=== PATIENT | male | born 1960 | race Caucasian/White ===

== ENCOUNTER 2018-03-12 07:45 | Observation (INO) | payer OTHER ==
[~2018-03-12] VITALS: Ht 172.7 cm; Wt 81.0 kg
[~2018-03-12 07:45] MED LIST: FEXO1TAB25 PO
[2018-03-12] MEDS ORDERED: MAALOX/HYOSCYAMINE/LIDOCAINE 45 ML BTL ONE (08:14)
[2018-03-12] MEDS ORDERED: ONDANSETRON 2MG/ML, 2ML ONE ×3 (08:15→16:43)
[2018-03-12] MEDS ORDERED: FAMOTIDINE 20 MG/2 ML ONE (08:15)
[2018-03-12] MEDS ORDERED: ONDANSETRON 2MG/ML, 2ML IVPush ONE ×2 (08:30→09:30)
[2018-03-12] MEDS ORDERED: FAMOTIDINE 20 MG/2 ML IVP ONE (08:30)
[2018-03-12] MEDS ORDERED: MAALOX/HYOSCYAMINE/LIDOCAINE 45 ML BTL PO ONE (08:30)
[2018-03-12] MEDS ORDERED: SODIUM CHLORIDE 0.9% 1,000ML IVBOLUS ONE ×2 (09:00→09:30)
[2018-03-12 09:01] LABS: BASOPHILS # (AUTO) 0.02 x10^3/uL (0-0.1); BASOPHILS % (AUTO) 0 % (0-1); EOSINOPHILS % (AUTO) 0 % (1-7); LYMPHOCYTES # (AUTO) 0.76 x10^3/uL (1-3.4); LYMPHOCYTES % (AUTO) 5 % (22-44); MD NO; MEAN CORPUSCULAR HEMOGLOBIN 31.3 pg (27.5-34.5); MEAN CORPUSCULAR HGB CONC 34.6 g/dL (33.2-36.2); MEAN CORPUSCULAR VOLUME 90.6 fL (81-97); MEAN PLATELET VOLUME 7.7 fL (7.4-10.4); MONOCYTES # (AUTO) 0.47 x10^3/uL (0.2-0.8); MONOCYTES % (AUTO) 3 % (2-9); NEUTROPHILS # (AUTO) 13.13 x10^3/uL (1.8-6.8); NEUTROPHILS % (AUTO) 91 % (42-75); PLATELET COUNT 274 x10^3/uL (130-400); RED BLOOD COUNT 5.11 x10^6/uL (4.38-5.82); RED CELL DISTRIBUTION WIDTH 13.5 % (9.4-14.8)
[2018-03-12 09:11] LABS: ALBUMIN 4.1 g/dL (3.4-5.0); ANION GAP 9 mmol/L (5-15); CALCIUM 8.7 mg/dL (8.5-10.1); CHLORIDE 109 mmol/L (98-107)
[2018-03-12 09:14] LABS: ALANINE AMINOTRANSFERASE 29 U/L (12-78); ALKALINE PHOSPHATASE 86 U/L (45-117); BILIRUBIN,TOTAL 0.8 mg/dL (0.2-1.0); CREATININE 1.24 mg/dL (0.7-1.3); TOTAL PROTEIN 7.9 g/dL (6.4-8.2); TROPONIN I < 0.015 ng/mL (0.000-0.045)
[2018-03-12] MEDS ORDERED: MORPHINE SULFATE 4 MG/ML, 1ML ONE (09:29)
[2018-03-12] MEDS ORDERED: MORPHINE SULFATE 4 MG/ML, 1ML IVPush PRN ×2 (09:30→19:30)
[2018-03-12 09:54] LABS: INTERNATIONAL NORMALIZED RATIO 1.02 (0.93-1.1); PROTHROMBIN TIME 10.5 Seconds (9.6-11.5)
[2018-03-12] MEDS ORDERED: SODIUM CHLORIDE FLUSH 10ML SYR IVF ONE (10:00)
[2018-03-12] MEDS ORDERED: OMNIPAQUE 350 MG/ML, 100ML BOTTLE ONE (10:43)
[2018-03-12] MEDS ORDERED: ACETAMINOPHEN 325 MG TABLET PO PRN (11:30)
[2018-03-12] MEDS ORDERED: KETOROLAC 30 MG/1 ML IV PRN ×2 (11:30→18:00)
[2018-03-12] MEDS ORDERED: ONDANSETRON 2MG/ML, 2ML IVPush PRN ×3 (11:30→19:30)
[2018-03-12] MEDS ORDERED: LABETALOL 5MG/ML, 20ML IVPush PRN (11:30)
[2018-03-12] MEDS ORDERED: LACTATED RINGERS 1,000 ML IV SCH (12:00)
[2018-03-12 13:28] VITALS: BP 129/73
[2018-03-12] MEDS ORDERED: POTASSIUM PHOSPHATE 44 MEQ in SODIUM CHLORIDE 0.9% 500 ML IV ONE (14:00)
[2018-03-12] MEDS ORDERED: BUPIVACAINE/PF-EPI 0.5% 1:200K ONE (16:31)
[2018-03-12] MEDS ORDERED: MIDAZOLAM 1 MG/ML, 2ML ONE (16:31)
[2018-03-12] MEDS ORDERED: FENTANYL PF 250 MCG/5ML ONE (16:31)
[2018-03-12] MEDS ORDERED: PROPOFOL 10 MG/ML, 20ML ONE (16:43)
[2018-03-12] MEDS ORDERED: CEFAZOLIN 1,000 MG ONE (16:43)
[2018-03-12] MEDS ORDERED: NEOSTIGMINE 1 MG/ML, 10ML ONE (16:43)
[2018-03-12] MEDS ORDERED: SUCCINYLCHOLINE 20 MG/ML, 10ML ONE (16:43)
[2018-03-12] MEDS ORDERED: GLYCOPYRROLATE 0.2MG/1ML, 5ML ONE (16:43)
[2018-03-12] MEDS ORDERED: ROCURONIUM 10 MG/ML,10ML ONE (16:43)
[2018-03-12] MEDS ORDERED: LABETALOL 5MG/ML, 20ML IV PRN (18:00)
[2018-03-12] MEDS ORDERED: FENTANYL PF 100 MCG/2ML IV PRN (18:00)
[2018-03-12] MEDS ORDERED: HYDROmorphone 1 MG/ML, 1ML IV PRN (18:00)
[2018-03-12] MEDS ORDERED: METOCLOPRAMIDE 5 MG/ML, 2ML IV PRN (18:00)
[2018-03-12] MEDS ORDERED: MEPERIDINE/PF 25MG/0.5ML IVPush PRN (18:00)
[2018-03-12] MEDS ORDERED: hydrALAzine 20 MG/ML, 1ML IV PRN (18:00)
[2018-03-12] MEDS ORDERED: ALBUTEROL SULFATE 2.5 MG/3 ML NPPB PRN (18:00)
[2018-03-12] MEDS ORDERED: OXYcodone 5 MG/5 ML ORAL.SOL UDC PO PRN (18:00)
[2018-03-12] MEDS ORDERED: OXYcodone 5 MG/5 ML ORAL.SOL UDC ONE (18:00)
[2018-03-12] MEDS ORDERED: PROMETHAZINE 25 MG/ML, 1ML IV PRN (18:00)
[2018-03-12] MEDS ORDERED: OXYcodone/APAP 5/325MG TABLET PO PRN (19:30)
[2018-03-12] MEDS ORDERED: HYDROmorphone 2 MG/ML, 1ML IV PRN (19:30)
[2018-03-12 19:49] VITALS: BP 116/65
[2018-03-12] MEDS: LACTATED RINGERS 1,000 ML IV SCH (21:06)
[2018-03-13 00:04] VITALS: BP 112/67
[2018-03-13] MEDS: HYDROcodone/APAP 5/325 TABLET PO PRN ×4 (01:40→12:07)
[2018-03-13] MEDS: LACTATED RINGERS 1,000 ML IV SCH (04:18)
[2018-03-13 05:15] LABS: BASOPHILS % (AUTO) 0 % (0-1); EOSINOPHILS # (AUTO) 0.01 x10^3/uL (0-0.4); EOSINOPHILS % (AUTO) 0 % (1-7); LYMPHOCYTES # (AUTO) 1.09 x10^3/uL (1-3.4); LYMPHOCYTES % (AUTO) 9 % (22-44); MD NO; MEAN CORPUSCULAR HEMOGLOBIN 31.4 pg (27.5-34.5); MEAN CORPUSCULAR HGB CONC 34.4 g/dL (33.2-36.2); MEAN CORPUSCULAR VOLUME 91.3 fL (81-97); MEAN PLATELET VOLUME 8.2 fL (7.4-10.4); MONOCYTES # (AUTO) 0.96 x10^3/uL (0.2-0.8); MONOCYTES % (AUTO) 8 % (2-9); NEUTROPHILS # (AUTO) 9.86 x10^3/uL (1.8-6.8); NEUTROPHILS % (AUTO) 83 % (42-75); PLATELET COUNT 210 x10^3/uL (130-400); RED BLOOD COUNT 4.48 x10^6/uL (4.38-5.82); RED CELL DISTRIBUTION WIDTH 13.6 % (9.4-14.8)
[2018-03-13 05:29] LABS: ANION GAP 6 mmol/L (5-15); CALCIUM 7.9 mg/dL (8.5-10.1); CHLORIDE 109 mmol/L (98-107)
[2018-03-13 05:31] LABS: CREATININE 0.84 mg/dL (0.7-1.3)
[2018-03-13 06:52] VITALS: BP 123/76
[2018-03-13] MEDS ORDERED: OXYC-302 PO (10:12)
[2018-03-13 10:52] VITALS: BP 115/97
[2018-03-13 12:00] VITALS: BP 108/63
== END 2018-03-13 12:50 | disposition home or self-care (01) ==
LOC: ED 09:56 → EDIP 11:06 → INTOOBSV 11:06 → 4NOR 12:56 → DCLOUNGE 03-13 12:37
PROVIDERS: ADMIT Internal Medicine; ATTEND Internal Medicine
DX: K80.00 Calculus of gallbladder with acute cholecystitis without obstruction (principal); D72.829 Elevated white blood cell count, unspecified; E83.39 Other disorders of phosphorus metabolism; R73.9 Hyperglycemia, unspecified; R10.13 Epigastric pain; R11.2 Nausea with vomiting, unspecified; R07.89 Other chest pain; K21.9 Gastro-esophageal reflux disease without esophagitis; K27.9 Peptic ulcer, site unspecified, unspecified as acute or chronic, without hemorrhage or perforation
CPT/HCPCS: 36415; 47562; 71046; 74177; 76700; 78226; 80048; 80053; 83690; 83735; 84100; 84484; 85025; 85610; 86677; 88304; 93005; 96365; 96366; 96375; 96376; 99285; A9537; C9898; G0378; J0330; J0690; J2250; J2405; J2704; J2710; J3010; J3490; J7030; J7040; J7120; Q9967; S0028; 96374